=== PATIENT | female | born 1990 | race Caucasian/White ===

== ENCOUNTER 2018-02-07 17:06 | Emergency (ER) | payer OTHER ==
--- NOTE | 2018-02-07 17:22 | PDOC ---
Rapid Medical Evaluation Time Seen by Provider: 02/07/18 17:18 Medical Evaluation: 02/07/18 17:18 Pt. presents to the ED for vaginal bleeding, five weeks . Pt also having cramping and spotting. Bleeding starting today. LMP 12/25/17. Exam: ambulatory. AAox3. lower abdominal discomfort. abdomen soft, non-distended , no guarding Orders: Labs, urine US Pt to proceed to ED for further evaluation. Discharge Disposition - Diagnosis Vaginal bleeding - Referrals - Patient Instructions - Post Discharge Activity
[2018-02-07 17:23] VITALS: BP 138/75; PULSE 83; TEMP 998.6; BMI 31.2
--- NOTE | 2018-02-07 17:41 | PDOC ---
History of Present Illness - General Chief Complaint: Vaginal Bleeding Stated Complaint: VAGINAL BLEEDING/5 WKS Time Seen by Provider: 02/07/18 17:18 - History of Present Illness Initial Comments: 27yo with vaginal bleeding and abdominal pain. Patient presented to [facility] 2 days ago for similar complaint, but reports that symptoms are worse today. Transvaginal ultrasound did not confirm IUP at [facility]. Patient visited a clinic in the [place] yesterday for similar complaint which measured B-hCG at 6218. Patient used about 5 pads today and noticed some blood clots. She also had some abdominal pain which she described as cramping. She is not established with an label paster physician at this time. Patient is also concerned about an xray that was taken earlier this month at [facility]. Denies fever, chills, SOB, or chest pain. Significant other and significant other's brother at the bedside. 02/07/18 19:18 Past History - Past Medical History Allergies/Adverse Reactions: Allergies Allergy/AdvReac Type Severity Reaction Status Date / Time No Known Allergies Allergy Verified 02/07/18 17:18 COPD: No - Immunization History Immunization Up to Date: Yes - Suicide/Smoking/Psychosocial Hx Smoking History: Former smoker Have you smoked in the past 12 months: Yes If you are a former smoker, when did you quit?: 12/25/17 Information on smoking cessation initiated: No Hx Alcohol Use: No Drug/Substance Use Hx: No Review of Systems - Review of Systems Comments:: Constitutional: no fever, no chills Cardiovascular: no chest pain, no palpitations Respiratory: no cough, no shortness of breath Gastrointestinal: no abdominal pain, no nausea, no vomiting Genitourinary: no dysuria, no frequency Musculoskeletal: no myalgia, no arthralgia Neurologic: no headache, no dizziness *Physical Exam - Vital Signs Last Vital Signs Temp Pulse Resp BP Pulse Ox 998.6 F H 83 18 138/75 100 02/07/18 17:18 02/07/18 17:18 02/07/18 17:18 02/07/18 17:18 02/07/18 17:18 - Physical Exam Comments: General: Awake, alert, and fully oriented, in no acute distress Head: No signs of trauma Eyes: EOMI, sclera anicteric ENT: moist mucus membranes, Neck: Normal ROM, supple Lungs: Lungs clear, Normal breath sounds Cardio: Regular rhythm, S1 and S2 present, no murmurs, rubs, or gallops Abdomen: +tender to palpation in suprapubic area, Soft, normal bowel sounds. No guarding, no rebound, no masses Extremities: Normal range of motion, No clubbing or cyanosis. No cords or tenderness SKIN: Warm, Dry, normal turgor, no rashes or lesions noted Neurologic: Cranial nerves II through XII grossly intact. Normal speech Pelvic Exam: No blood visible in the vault, cervical os is closed 02/07/18 20:04 ED Treatment Course - LABORATORY CBC & Chemistry Diagram: 02/07/18 18:05 Medical Decision Making - Medical Decision Making 27yo female with vaginal bleeding and abdominal pain. Labs and TVUS ordered. Pelvic exam: no blood visible in the vault. Cervical os closed. Will trend B-hCG. Possibly too early in to confirm IUP. Patient will likely need outpatient follow-up with an label paster. Patient signed out to Dr. Schilling 02/07/18 20:04 Laboratory Tests 02/07/18 02/07/18 02/07/18 17:50 18:05 18:05 WBC 11.7 H RBC 4.93 Hgb 14.7 Hct 43.6 MCV 88.6 MCH 29.8 MCHC 33.7 RDW 14.5 Plt Count 282 MPV 8.9 Absolute Neuts (auto) 8.8 Neutrophils % 75.1 Lymphocytes % 19.2 Monocytes % 4.9 Eosinophils % 0.6 Basophils % 0.2 Nucleated RBC % 0 Beta HCG, Quant 7512.7 Urine Color Ltyellow Urine Appearance Slcloudy Urine pH 6.0 Ur Specific [place] 1.017 Urine Protein Negative Urine Glucose (UA) Negative Urine Ketones Negative Urine Blood 3+ H Urine Nitrite Negative Urine Bilirubin Negative Urine Urobilinogen Negative Ur Leukocyte Esterase Negative Urine WBC (Auto) 3 Urine RBC (Auto) 1 Ur Epithelial Cells Few Urine Bacteria Rare Urine Mucus Rare Blood Type Antibody Screen 02/07/18 18:05 WBC RBC Hgb Hct MCV MCH MCHC RDW Plt Count MPV Absolute Neuts (auto) Neutrophils % Lymphocytes % Monocytes % Eosinophils % Basophils % Nucleated RBC % Beta HCG, Quant Urine Color Urine Appearance Urine pH Ur Specific [place] Urine Protein Urine Glucose (UA) Urine Ketones Urine Blood Urine Nitrite Urine Bilirubin Urine Urobilinogen Ur Leukocyte Esterase Urine WBC (Auto) Urine RBC (Auto) Ur Epithelial Cells Urine Bacteria Urine Mucus Blood Type O POSITIVE Antibody Screen Negative *DC/Admit/Observation/Transfer Diagnosis at time of Disposition: Vaginal bleeding - Discharge Dispostion Disposition: HOME Condition at time of disposition: Stable - Referrals - Patient Instructions Printed Discharge Instructions: DI for Vaginal Bleeding During Additional Instructions: Please return to the emergency department with any new or worsening symptoms or concerns. Please follow up with your primary care rent and housing investigator physician within 72 hours. Please follow up in emergency department in 2 days for repeat BHCG. - Post Discharge Activity
[2018-02-07 18:23] LABS: BASO % 0.2 % (0-2.0); EOS % 0.6 % (0-4.5); HEMATOCRIT 43.6 % (32.4-45.2); HEMOGLOBIN 14.7 GM/dL (10.7-15.3); LYMPH % 19.2 % (8-40); MCH 29.8 pg (25.7-33.7); MCHC 33.7 g/dl (32.0-36.0); MEAN CELL VOLUME 88.6 fl (80-96); MEAN PLT VOLUME 8.9 fl (7.5-11.1); MONO % 4.9 % (3.8-10.2); NEUT % 75.1 % (42.8-82.8); PLATELET COUNT 282 K/MM3 (134-434); RBC 4.93 M/mm3 (3.60-5.2); RDW 14.5 % (11.6-15.6); WHITE BLOOD COUNT 11.7 K/mm3 (4.0-10.0)
[2018-02-07 18:45] LABS: URINE APPEARANCE SLCLOUDY; URINE BILIRUBIN NEGATIVE (<2.0 mg/dL); URINE COLOR LTYELLOW; URINE GLUCOSE (UA) NEGATIVE (NEGATIVE); URINE KETONE NEGATIVE (NEGATIVE); URINE LEUK ESTERASE NEGATIVE (NEGATIVE); URINE NITRITE NEGATIVE (NEGATIVE); URINE PROTEIN NEGATIVE (NEGATIVE); URINE UROBILINOGEN NEGATIVE mg/dL (0.2-1.0)
[2018-02-07 18:57] LABS: EPI CELLS FEW /HPF (FEW); URINE BACTERIA RARE /hpf (NONE SEEN); URINE MUCUS RARE
--- NOTE | 2018-02-07 19:20 | PDOC ---
Attending Attestation - Resident Resident Name: Erika Chapa - ED Attending Attestation I have performed the following: I have examined & evaluated the patient, The case was reviewed & discussed with the resident, I agree w/resident's findings & plan, Exceptions are as noted - Medical Decision Making 02/07/18 19:18 I, Dr. Marie Cochran, DO, attest that this document has been prepared under my direction and personally reviewed by me in its entirety. I further attest, that it accurately reflects all work, treatment, procedures and medical decision -making performed by me. 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 The patient states that she visited [facility] on Monday02/05/18 and was diagnosed with a possible ectopic . Patient notes bleeding when she wipes. She reports going through multiple pads daily and clots were noted. Patient also endorses dysuria. The patient denies any fever, chills, nausea, vomiting, or diarrhea. Denies any chest pain or shortness of breath. - Physicial Exam PE: 02/07/18 21:12 GENERAL: Awake, alert, and fully oriented, in no acute distress HEAD: No signs of trauma EYES: PERRLA, EOMI, sclera anicteric, conjunctiva clear ENT: Auricles normal inspection, hearing grossly normal, nares patent, oropharynx clear without exudates. Moist mucosa NECK: Normal ROM, supple, no lymphadenopathy, JVD, or masses LUNGS: Breath sounds equal, clear to auscultation bilaterally. No wheezes, and no crackles HEART: Regular rate and rhythm, normal S1 and S2, no murmurs, rubs or gallops ABDOMEN: Soft, nontender, normoactive bowel sounds. No guarding, no rebound. No masses EXTREMITIES: Normal range of motion, no edema. No clubbing or cyanosis. No cords, erythema, or tenderness NEUROLOGICAL: Cranial nerves II through XII grossly intact. Normal speech, normal gait SKIN: Warm, Dry, normal turgor, no rashes or lesions noted <Rolanda Hodges - Last Filed: 02/07/18 21:17> Attestations - Attestations 02/07/18 21:15 Documentation prepared by Rolanda Hodges, acting as medical office assistant instructor for Marie Cochran DO. <Rolanda Hodges - Last Filed: 02/07/18 21:17>
--- NOTE | 2018-02-07 20:24 | PDOC ---
*Physical Exam - Vital Signs Last Vital Signs Temp Pulse Resp BP Pulse Ox 998.6 F H 83 18 138/75 100 02/07/18 17:18 02/07/18 17:18 02/07/18 17:18 02/07/18 17:18 02/07/18 17:18 - Physical Exam Comments: 02/07/18 20:23 GENERAL: Awake, alert, and fully oriented, in no acute distress HEAD: No signs of trauma, normocephalic, atraumatic EYES: PERRLA, EOMI, sclera anicteric, conjunctiva clear ENT: Hearing grossly normal, nares patent, oropharynx clear without exudates. Moist mucosa NECK: Normal ROM, supple, no lymphadenopathy, JVD, or masses LUNGS: No distress, speaks full sentences, clear to auscultation bilaterally HEART: Regular rate and rhythm, normal S1 and S2, no murmurs, rubs or gallops, peripheral pulses normal and equal bilaterally. ABDOMEN: Soft, nontender, normoactive bowel sounds. No guarding, no rebound. No masses EXTREMITIES : Normal inspection, Normal range of motion, no edema. No clubbing or cyanosis. SKIN: Warm, Dry, normal turgor, no rashes or lesions noted ED Treatment Course - LABORATORY CBC & Chemistry Diagram: 02/07/18 18:05 - ADDITIONAL ORDERS Additional order review: Laboratory Results 02/07/18 02/07/18 02/07/18 18:05 18:05 17:50 Beta HCG, Quant 7512.7 Urine Color Ltyellow Urine Appearance Slcloudy Urine pH 6.0 Ur Specific [place] 1.017 Urine Protein Negative Urine Glucose (UA) Negative Urine Ketones Negative Urine Blood 3+ H Urine Nitrite Negative Urine Bilirubin Negative Urine Urobilinogen Negative Ur Leukocyte Esterase Negative Urine WBC (Auto) 3 Urine RBC (Auto) 1 Ur Epithelial Cells Few Urine Bacteria Rare Urine Mucus Rare Blood Type O POSITIVE Antibody Screen Negative 02/07/18 18:05 RBC 4.93 MCV 88.6 MCHC 33.7 RDW 14.5 MPV 8.9 Neutrophils % 75.1 Lymphocytes % 19.2 Monocytes % 4.9 Eosinophils % 0.6 Basophils % 0.2 Medical Decision Making - Medical Decision Making 02/07/18 20:24 27 yo who p/w vaginal bleeding and abdominal pain. Received sign out from Dr. Chapa. Patient seen at [facility] x 2 days ago with asbent IUP visualized on transvaginal ultrasound. No other complaints. VSS, AF. ED course notable HCG 7512, WBC 11.7, UA 1 + Blood and 3 RBC, CMP Unremarkable. TVUS pending. Ed Course: 02/07/18 20:28 TVUS: IUP 5w,5d.+ gestational sac with yolk sac present. No pole seen. Patient advised to f/u with GI for serial transvaginal U/S and HCG. Patient stable for d/c with return precautions. *DC/Admit/Observation/Transfer Diagnosis at time of Disposition: Vaginal bleeding - Discharge Dispostion Disposition: HOME Condition at time of disposition: Stable Decision to Admit order: No - Referrals - Patient Instructions Printed Discharge Instructions: DI for Vaginal Bleeding During Additional Instructions: Please return to the emergency department with any new or worsening symptoms or concerns. Please follow up with your primary care lead android developer physician within 72 hours. - Post Discharge Activity - Attestations Physician Attestion: 02/07/18 20:43 I attest to the information provided in this note.
== END 2018-02-07 21:30 | disposition home or self-care (01) ==
LOC: JER 17:06
DX: O26.891 Other specified pregnancy related conditions, first trimester (principal); N93.9 Abnormal uterine and vaginal bleeding, unspecified
CPT/HCPCS: 36415; 76817-TC; 81003; 81015; 84702; 85025; 86850; 86900; 86901; 87086; 99282-25

== ENCOUNTER 2018-02-09 10:58 | Emergency (ER) | payer OTHER ==
[2018-02-09 11:27] VITALS: BP 135/68; PULSE 84; TEMP 98.3; BMI 33.3
[2018-02-09] MEDS ORDERED: ACETAMINOPHEN 500 MG TABLET (FP) PO ONE (11:44)
--- NOTE | 2018-02-09 11:44 | PDOC ---
History of Present Illness - General Chief Complaint: Revisit, Lab Variance Stated Complaint: REVISIT, FOLLOW UP Time Seen by Provider: 02/09/18 11:32 History Source: Patient Exam Limitations: Clinical Condition - History of Present Illness Initial Comments: 02/09/18 11:41 Patient with no significant past medical history presenting for follow-up for repeat beta hCG status was presented to the ED 2 days ago with vaginal bleeding which has resolved. Beta hCG done 2 days ago was 7000+. Vaginal auto sounds shows IUP of 5.5 weeks . Patient reported no more vaginal bleeding but reported mild abdominal pains she describes as cramping pain. Denies any other symptoms Past History - Past Medical History Allergies/Adverse Reactions: Allergies Allergy/AdvReac Type Severity Reaction Status Date / Time No Known Allergies Allergy Verified 02/07/18 17:18 Home Medications: Ambulatory Orders NK [No Known Home Medication] 02/09/18 COPD: No - Immunization History Immunization Up to Date: Yes - Suicide/Smoking/Psychosocial Hx Smoking History: Former smoker Have you smoked in the past 12 months: Yes Number of Cigarettes Smoked Daily: 10 If you are a former smoker, when did you quit?: 12/25/17 Information on smoking cessation initiated: No Hx Alcohol Use: Yes (socially) Drug/Substance Use Hx: No Review of Systems - Review of Systems Able to Perform ROS?: Yes Is the patient limited Azeri proficient: No Constitutional: No: Chills, Diaphoresis, Fever, Loss of Appetite, Malaise, Night Sweats, Weakness, Weight Stable, Unintentional Wgt. Loss, Unexplained wgt Loss, Other HEENTM: No: Eye Pain, Blurred Vision, Tearing, Recent change in vision, Double Vision, Cataracts, Ear Pain, Ocular Prothesis, Ear Discharge, Nose Pain, Nose Congestion, Tinnitus, Nose Bleeding, Hearing Loss, Throat Pain, Throat Swelling , Mouth Pain, Dental Problems, Difficulty Swallowing, Mouth Swelling, Other Respiratory: No: Cough, Orthopnea, Shortness of Breath, SOB with Exertion, SOB at Rest, Stridor, Wheezing, Productive cough, Hemoptysis, Other Cardiac (ROS): No: Chest Pain, Edema, Irregular Heart Rate, Lightheadedness, Palpitations, Syncope, Chest Tightness, Other ABD/GI: Yes: See HPI : Yes: Symptoms Reported. No: Other (vaginal bleeding) All Other Systems: Reviewed and Negative *Physical Exam - Vital Signs Last Vital Signs Temp Pulse Resp BP Pulse Ox 98.3 F 84 18 135/68 100 02/09/18 11:19 02/09/18 11:19 02/09/18 11:19 02/09/18 11:19 02/09/18 11:19 - Physical Exam Comments: 02/09/18 11:43 GENERAL: Well developed, well nourished. Awake and alert. No acute distress. HEENT: Normocephalic, atraumatic. PERRLA, EOMI. No conjunctival pallor. Sclera are non- icteric. Moist mucous membranes. Oropharynx is clear. NECK: Supple. Full ROM. No JVD. Carotid pulses 2+ and symmetric, without bruits. No thyromegaly. No lymphadenopathy. CARDIOVASCULAR: Regular rate and rhythm. No murmurs, rubs, or gallops. Distal pulses are 2+ and symmetric. PULMONARY: No evidence of respiratory distress. Lungs clear to auscultation bilaterally. No wheezing, rales or rhonchi. ABDOMINAL: Soft. Non-tender. Non-distended. No rebound or guarding. No organomegaly. Normoactive bowel sounds. MUSCULOSKELETAL : mild suprapubic discomfort on exam Normal range of motion at all joints. No bony deformities or tenderness. No CVA tenderness. EXTREMITIES: No cyanosis. No clubbing. No edema. No calf tenderness. SKIN: Warm and dry. Normal capillary refill. No rashes. No jaundice. NEUROLOGICAL: Alert, awake, appropriate. Cranial nerves 2-12 intact. No deficits to light touch and temperature in face, upper extremities and lower extremities. No motor deficits in the in face, upper extremities and lower extremities. Normoreflexic in the upper and lower extremities. Normal speech. Toes are down- going bilaterally. Gait is normal without ataxia. PSYCHIATRIC: Cooperative. Good eye contact. Appropriate mood and affect. General Appearance: Yes: Nourished, Appropriately Dressed. No: Apparent Distress Medical Decision Making - Medical Decision Making 02/09/18 11:58 Patient with no significant past medical history presenting for follow-up for beta-hCG status post vaginal bleeding 2 days ago with beta-hCG of 7000+. Official vaginal ultrasound done 2 days ago shows positive IUP with gestational sac and no pole. Vaginal bleeding has resolved with no more bleeding today. Bedside sonogram shows positive gestational sac and yolk sac with no . Beta hCG ordered and patient will be discharged home if appropriate rise with MATERIALS PLANNER/PRODUCTION PLANNER follow-up in a week for repeat beta and sono with bleeding precautions. 02/09/18 12:51 Repeat beta hCG is 12,000+. Patient be discharged home with follow-up with OB/ SIGNAL TIMER in a week for repeat sonogram and beta hCG with bleeding precautions *DC/Admit/Observation/Transfer Diagnosis at time of Disposition: Threatened - Discharge Dispostion Disposition: HOME Condition at time of disposition: Stable Decision to Admit order: No - Referrals Referrals: Angi Ribera MD [Staff Physician] - - Patient Instructions Printed Discharge Instructions: Threatened , DI for Threatened Additional Instructions: Your blood work today Rise appropriately . Follow-up with her MATERIALS PLANNER/PRODUCTION PLANNER in a week for repeat blood work on sonogram. Come back to the emergency room if vaginal bleeding again and worsening abdominal pains . take Tylenol as needed for pain Print Language: PUERTO RICAN - Post Discharge Activity
[2018-02-09] MEDS ORDERED: ACETAMINOPHEN 500 MG TABLET (FP) ONE (11:54)
== END 2018-02-09 12:55 | disposition home or self-care (01) ==
LOC: JERFT 10:58
DX: O26.891 Other specified pregnancy related conditions, first trimester (principal); Z3A.01 Less than 8 weeks gestation of pregnancy; O20.0 Threatened abortion
CPT/HCPCS: 36415; 84702; 99281-25

== ENCOUNTER 2018-03-11 14:49 | Emergency (ER) | payer OTHER ==
[2018-03-11 14:59] VITALS: BP 129/77; PULSE 83; TEMP 98.5; BMI 33.3
[2018-03-11] MEDS ORDERED: ACETAMINOPHEN 500 MG TABLET (FP) PO ONE (15:40)
--- NOTE | 2018-03-11 15:54 | PDOC ---
History of Present Illness - General Chief Complaint: Urinary Problem Stated Complaint: UTI ( 10 weeks ) History Source: Patient Exam Limitations: No Limitations - History of Present Illness Travel History: No Initial Comments: 03/11/18 15:43 27 y/o female 10 weeks presents to the ED for urinary complaints x 4 days now with lower abdominal pressure x 3 days radiating to rt flank area since yesterday. Pt states had no ultrasound for the an is on prenatals. Patient denies vaginal discharge, bleeding , or back pain. The patient denies recent travel, illness, or fall. Timing/Duration: reports: constant, getting worse Quality: reports: mild, cramping Abdominal Pain Onset Location: reports: suprapubic Pain Radiation: reports: flank (rt) Activities at Onset: reports: none Aggravating Factors: improves with: None Alleviating Factors: improves with: None Past History - Past Medical History Allergies/Adverse Reactions: Allergies Allergy/AdvReac Type Severity Reaction Status Date / Time No Known Allergies Allergy Verified 03/11/18 14:59 Home Medications: Ambulatory Orders Cephalexin [Keflex] 500 mg PO BID #14 capsule 03/11/18 Vit 108/Iron/Folic AC [ One Tablet] 1 each PO DAILY 03/11/18 COPD: No - Immunization History Immunization Up to Date: Yes - Suicide/Smoking/Psychosocial Hx Smoking History: Never smoked Have you smoked in the past 12 months: No Number of Cigarettes Smoked Daily: 10 If you are a former smoker, when did you quit?: 12/25/17 Information on smoking cessation initiated: No Hx Alcohol Use: No Drug/Substance Use Hx: No Patient Lives Alone: No Lives with/in: parents Review of Systems - Review of Systems Constitutional: No: Symptoms Reported HEENTM: No: Symptoms Reported Respiratory: No: Symptoms reported Cardiac (ROS): No: Symptoms Reported ABD/GI: No: Symptoms Reported : No: Symptoms Reported Musculoskeletal: No: Symptoms Reported Integumentary: No: Symptoms Reported Neurological: No: Symptoms reported *Physical Exam - Vital Signs Last Vital Signs Temp Pulse Resp BP Pulse Ox 98.5 F 83 16 129/77 100 03/11/18 14:54 03/11/18 14:54 03/11/18 14:54 03/11/18 14:54 03/11/18 14:54 - Physical Exam General Appearance: Yes: Nourished, Appropriately Dressed. No: Apparent Distress Neck: positive: Supple Respiratory/Chest: positive: Lungs Clear, Normal Breath Sounds. negative: Respiratory Distress, Accessory Muscle Use Cardiovascular: positive: Regular Rhythm, Regular Rate. negative: Murmur Gastrointestinal/Abdominal: positive: Soft. negative: Tenderness Musculoskeletal: negative: CVA Tenderness (R) Extremity: positive: Normal Capillary Refill. negative: Pedal Edema Integumentary: positive: Normal Color, Warm, Moist Neurologic: positive: Motor Strength 5/5 (ambulatory ) ED Treatment Course - LABORATORY CBC & Chemistry Diagram: 03/11/18 15:50 03/11/18 15:50 - RADIOLOGY Radiology Studies Ordered: Category Date Time Status <14WKS US [US] Stat Ultrasound 03/11/18 15:38 Ordered Medical Decision Making - Medical Decision Making 03/11/18 16:03 Pt with urinary complaints x 4 days with suprapubic pressure x 3 days. pt on exam with no mild cva tendeness. Pt concerning for uti, abd pain in , and miscarriage/ectopic, pt ordered for labs,urine, tylenol, and u/s. 03/11/18 16:08 Laboratory Tests 03/11/18 15:50 WBC 10.2 H Hgb 13.6 Hct 39.2 Absolute Neuts (auto) 7.2 03/11/18 17:59 Laboratory Tests 03/11/18 03/11/18 03/11/18 15:50 15:50 15:59 WBC 10.2 H Hgb 13.6 Hct 39.2 Neutrophils % 70.4 Sodium 142 Potassium 3.8 Chloride 108 H Carbon Dioxide 24 Anion Gap 10 BUN 10 Creatinine 0.5 L Random Glucose 97 Calcium 9.0 Total Bilirubin 0.2 AST 17 ALT 45 Alkaline Phosphatase 73 Total Protein 7.0 Albumin 3.6 Urine Protein Negative Urine Glucose (UA) Negative Urine Ketones Negative Urine Blood Negative Urine Nitrite Negative Ur Leukocyte Esterase 2+ H Urine WBC (Auto) 13 Urine RBC (Auto) 1 Patient's ultrasound shows a single intrauterine gestation measuring 10 weeks with a heartbeat of 152 bpm. Patient will be discharged home with Keflex. Patient states of an appointment in [address] Justin Whitehead 03/11/18 18:15 *DC/Admit/Observation/Transfer Diagnosis at time of Disposition: UTI in - Discharge Dispostion Disposition: HOME Condition at time of disposition: Good - Prescriptions Prescriptions: Cephalexin [Keflex] 500 mg PO BID #14 capsule - Referrals - Patient Instructions Printed Discharge Instructions: DI for Urinary Tract Infection (UTI) Additional Instructions: Please drink plenty of fluids and clean from front to back. Please also take antibiotics until completed and follow-up with SAP SECURITY ARCHITECT as scheduled next month. - Post Discharge Activity
[2018-03-11 15:58] LABS: BASO % 0.7 % (0-2.0); EOS % 0.7 % (0-4.5); HEMATOCRIT 39.2 % (32.4-45.2); HEMOGLOBIN 13.6 GM/dL (10.7-15.3); LYMPH % 21.7 % (8-40); MCH 30.3 pg (25.7-33.7); MCHC 34.6 g/dl (32.0-36.0); MEAN CELL VOLUME 87.4 fl (80-96); MEAN PLT VOLUME 8.4 fl (7.5-11.1); MONO % 6.5 % (3.8-10.2); NEUT % 70.4 % (42.8-82.8); PLATELET COUNT 228 K/MM3 (134-434); RBC 4.48 M/mm3 (3.60-5.2); RDW 13.7 % (11.6-15.6); WHITE BLOOD COUNT 10.2 K/mm3 (4.0-10.0)
[2018-03-11 16:06] LABS: URINE APPEARANCE CLOUDY; URINE BILIRUBIN NEGATIVE (<2.0 mg/dL); URINE COLOR YELLOW; URINE GLUCOSE (UA) NEGATIVE (NEGATIVE); URINE KETONE NEGATIVE (NEGATIVE); URINE NITRITE NEGATIVE (NEGATIVE); URINE PROTEIN NEGATIVE (NEGATIVE); URINE UROBILINOGEN NEGATIVE mg/dL (0.2-1.0)
[2018-03-11] MEDS ORDERED: ACETAMINOPHEN 325 MG TABLET (FP) ONE (16:06)
[2018-03-11 16:11] LABS: URINE LEUK ESTERASE 2+ (NEGATIVE)
[2018-03-11 16:13] LABS: EPI CELLS MANY /HPF (FEW); URINE MUCUS RARE
[2018-03-11 16:22] LABS: ALBUMIN 3.6 g/dl (3.4-5.0); ALK PHOS 73 U/L (45-117); ANION GAP 10 MMOL/L (8-16); BILIRUBIN,TOTAL 0.2 mg/dL (0.2-1.0); BLOOD UREA NITROGEN 10 mg/dL (7-18); CHLORIDE 108 mmol/L (98-107); CO2 24 mmol/L (21-32); CREATININE 0.5 mg/dL (0.55-1.02); GLUCOSE,RANDOM 97 mg/dL (74-106); POTASSIUM 3.8 mmol/L (3.5-5.1); SGOT/AST 17 U/L (15-37); SGPT/ALT 45 U/L (12-78); SODIUM 142 mmol/L (136-145)
== END 2018-03-11 18:15 | disposition home or self-care (01) ==
LOC: JER 14:49
DX: O26.891 Other specified pregnancy related conditions, first trimester (principal); O23.41 Unspecified infection of urinary tract in pregnancy, first trimester; Z3A.10 10 weeks gestation of pregnancy
CPT/HCPCS: 36415; 76801-TC; 80053; 81003; 81015; 85025; 87086; 99281-25

== ENCOUNTER 2018-04-22 11:44 | Emergency (ER) | payer OTHER ==
[2018-04-22 11:51] VITALS: BP 131/67; PULSE 115; TEMP 99.1; BMI 33.3
--- NOTE | 2018-04-22 11:55 | PDOC ---
History of Present Illness - General Chief Complaint: Sore Throat Stated Complaint: SORE THROAT/FEVER Time Seen by Provider: 04/22/18 11:55 Past History - Past Medical History Allergies/Adverse Reactions: Allergies Allergy/AdvReac Type Severity Reaction Status Date / Time No Known Allergies Allergy Verified 04/22/18 11:51 Home Medications: Ambulatory Orders Cephalexin [Keflex] 500 mg PO BID #14 capsule 03/11/18 Vit 108/Iron/Folic AC [ One Tablet] 1 each PO DAILY 03/11/18 COPD: No - Immunization History Immunization Up to Date: Yes - Suicide/Smoking/Psychosocial Hx Smoking History: Never smoked Have you smoked in the past 12 months: No Number of Cigarettes Smoked Daily: 10 If you are a former smoker, when did you quit?: 12/25/17 Information on smoking cessation initiated: No Hx Alcohol Use: No Drug/Substance Use Hx: No Substance Use Type: None *Physical Exam - Vital Signs Last Vital Signs Temp Pulse Resp BP Pulse Ox 99.1 F 115 H 20 131/67 99 04/22/18 11:49 04/22/18 11:49 04/22/18 11:49 04/22/18 11:49 04/22/18 11:49
--- NOTE | 2018-04-22 12:18 | PDOC ---
History of Present Illness - General Chief Complaint: Sore Throat Stated Complaint: SORE THROAT/FEVER Time Seen by Provider: 04/22/18 11:55 History Source: Patient Exam Limitations: No Limitations - History of Present Illness Initial Comments: CHIEF COMPLAINT: 27 y/o afebrile female, approximately 14 weeks , c/o sore throat and fever x 2 days. HISTORY OF PRESENT ILLNESS: The patient states it's hard to swallow. She has been taking tylenol for her symptoms. She denies cough, inability to handle secretions. Vital signs on arrival are notable for pulse of 115. REVIEW OF SYSTEMS: GENERAL/CONSTITUTIONAL: +subjective fever. HEAD, EYES, EARS, NOSE AND THROAT: No ear pain or discharge. +sore throat. CARDIOVASCULAR: No chest pain or shortness of breath. RESPIRATORY: No cough, wheezing, or hemoptysis. SKIN: No rash or easy bruising. NEUROLOGIC: No headache, vertigo, loss of consciousness, or loss of sensation. PHYSICAL EXAM: GENERAL: The patient is awake, alert, and fully oriented, in no acute distress. HEAD: Normal with no signs of trauma. NECK: Tender anterior cervical lymphadenopathy. ENT: Pupils equal, round and reactive to light, extraocular movements intact, sclera anicteric, conjunctiva clear. 1+ erythematous tonsils with exudate noted on left tonsil. Uvula midline. No trismus. No soft/hard palate deformities. LUNGS: Clear to auscultation bilaterally. Normal excursion. No respiratory distress or use of accessory muscles. CV: RRR, S1/S2, no MRG. Cap refill < 2 sec. ABDOMEN: Soft, non-distended, non-tender even to deep palpation, no hepatomegaly or splenomegaly, no masses. NEUROLOGICAL: Normal speech, normal gait. CN II-XII grossly intact. SKIN: Warm, dry, normal turgor, no rashes or lesions noted. Past History - Past Medical History Allergies/Adverse Reactions: Allergies Allergy/AdvReac Type Severity Reaction Status Date / Time No Known Allergies Allergy Verified 04/22/18 11:51 Home Medications: Ambulatory Orders Cephalexin [Keflex] 500 mg PO BID #14 capsule 03/11/18 Vit 108/Iron/Folic AC [ One Tablet] 1 each PO DAILY 03/11/18 Penicillin V Potassium [Pen Vee K -] 500 mg PO BID #20 tablet 04/22/18 COPD: No - Immunization History Immunization Up to Date: Yes - Suicide/Smoking/Psychosocial Hx Smoking History: Never smoked Have you smoked in the past 12 months: No Number of Cigarettes Smoked Daily: 10 If you are a former smoker, when did you quit?: 12/25/17 Information on smoking cessation initiated: No Hx Alcohol Use: No Drug/Substance Use Hx: No Substance Use Type: None *Physical Exam - Vital Signs Last Vital Signs Temp Pulse Resp BP Pulse Ox 99.1 F 115 H 20 131/67 99 04/22/18 11:49 04/22/18 11:49 04/22/18 11:49 04/22/18 11:49 04/22/18 11:49 Medical Decision Making - Medical Decision Making A/P: 27 y/o female with strep throat based on centor score. Will send rx for PCN and suggested tylenol every 4 hours. Patient instructed to eat soft/cold foods, drink plenty of fluids and keep follow up appointment with OB scheduled for tomorrow. The patient verbalizes understanding of all instructions, has no further questions and is awaiting discharge. *DC/Admit/Observation/Transfer Diagnosis at time of Disposition: Strep pharyngitis - Discharge Dispostion Disposition: HOME Condition at time of disposition: Good - Referrals Referrals: Sharmin Lindsay [Primary Care Provider] - - Patient Instructions Printed Discharge Instructions: DI for Strep Throat Additional Instructions: Discharge Instructions: -You have strep throat, which is an infection in your throat -A prescription for antibiotics has been sent to your pharmacy; please take for entire 10 days -Take 650mg of over the counter Tylenol every 4 hours for fever -Eat soft and cold foods to help with throat pain -Get a new toothbrush after 3 days of the medicine -Gargle with warm salt water 3 times per day -Keep your appointment with your doctor scheduled for tomorrow Instrucciones de descarga: -Usted tiene vasyl faringitis estreptoccica, que es vasyl infeccin en andrade garganta. -Vasyl receta de antibiticos currie sido enviada a andrade farmacia; por favor tome jenn 10 genao enteros -[place] 650 mg de Tylenol sin receta cada 4 horas para la fiebre -Come alimentos suaves y fros para ayudar con el dolor de garganta. - Obtener un cepillo de dientes nuevo despus de 3 miller de la medicina. -Gargar con agua tibia con mary 3 veces al da - Mantenga andrade david con andrade mdico programada para maana. Print Language: PERSIAN - Post Discharge Activity
== END 2018-04-22 12:27 | disposition home or self-care (01) ==
LOC: JER 11:44 → JERFT 11:44
DX: O99.89 Other specified diseases and conditions complicating pregnancy, childbirth and the puerperium (principal); J02.0 Streptococcal pharyngitis; B95.5 Unspecified streptococcus as the cause of diseases classified elsewhere; Z3A.14 14 weeks gestation of pregnancy
CPT/HCPCS: 99281-25

== ENCOUNTER 2018-05-29 15:32 | Emergency (ER) | payer OTHER ==
--- NOTE | 2018-05-29 15:53 | PDOC ---
Rapid Medical Evaluation Time Seen by Provider: 05/29/18 15:50 Medical Evaluation: Allergies Allergy/AdvReac Type Severity Reaction Status Date / Time No Known Allergies Allergy Verified 04/22/18 11:51 I have performed a brief in-person evaluation of this patient. The patient presents with a chief complaint of: 23 weeks with lower abdominal pain and vaginal spotting since yesterday. . LMP was 12/16/17. Pertinent physical exam findings: none I have ordered the following: nothing. Patient is cleared to go to L&D. The patient will proceed to the ED for further evaluation. Discharge Disposition - Diagnosis Vaginal bleeding, Abdominal pain affecting - Referrals Referrals: Sharmin Lindsay [Primary Care Provider] - - Patient Instructions - Post Discharge Activity
[2018-05-29 15:54] VITALS: BMI 32.9
[2018-05-29 17:47] VITALS: BP 129/68; PULSE 87; TEMP 98.4
== END 2018-05-29 18:20 | disposition home or self-care (01) ==
LOC: JER 15:32
DX: O26.892 Other specified pregnancy related conditions, second trimester (principal); O46.92 Antepartum hemorrhage, unspecified, second trimester; Z3A.23 23 weeks gestation of pregnancy
CPT/HCPCS: 76815-TC; 76817-TC; 99284-25

== ENCOUNTER 2019-04-07 13:20 | Emergency (ER) | payer OTHER ==
[2019-04-07 13:57] VITALS: BP 122/68; PULSE 69; TEMP 98.1; BMI 32.9
--- NOTE | 2019-04-07 14:34 | PDOC ---
History of Present Illness - General Chief Complaint: Chest Pain Stated Complaint: CHEST PAIN Time Seen by Provider: 04/07/19 14:19 History Source: Patient - History of Present Illness Presenting Symptoms: Other Timing/Duration: reports: intermittent Past History - Past Medical History Allergies/Adverse Reactions: Allergies Allergy/AdvReac Type Severity Reaction Status Date / Time latex Allergy Mild Itching Verified 05/29/18 15:54 Home Medications: Ambulatory Orders Mv-Mn/Iron/FA/Herbal/Digestive [ One Tablet] 1 each PO DAILY 03/11/18 Sertraline HCl [Zoloft] 50 mg PO DAILY 07/07/18 COPD: No - Reproductive History Cervical CA: No Dysfunctional Uterine Bleeding: No Ectopic : No Endometrial CA: No Polycystic Ovaries: No Therapeutic (s) & number: No Tubal Ligation: No - Immunization History Immunization Up to Date: Yes - Suicide/Smoking/Psychosocial Hx Smoking History: Current some day smoker Have you smoked in the past 12 months: No Number of Cigarettes Smoked Daily: 2 If you are a former smoker, when did you quit?: 12/25/17 Information on smoking cessation initiated: Yes Hx Alcohol Use: No Drug/Substance Use Hx: No Substance Use Type: None Review of Systems - Review of Systems Constitutional: No: Chills, Fever Respiratory: No: Shortness of Breath Cardiac (ROS): Yes: Chest Pain, Lightheadedness. No: Palpitations, Syncope ABD/GI: No: Nausea, Vomiting *Physical Exam - Vital Signs Last Vital Signs Temp Pulse Resp BP Pulse Ox 98.1 F 69 20 122/68 99 04/07/19 13:55 04/07/19 13:55 04/07/19 13:55 04/07/19 13:55 04/07/19 13:55 - Physical Exam General Appearance: Yes: Appropriately Dressed. No: Apparent Distress HEENT: positive: Normal Voice Neck: positive: Supple Respiratory/Chest: positive: Lungs Clear, Normal Breath Sounds. negative: Respiratory Distress Cardiovascular: positive: Regular Rate, S1, S2 Gastrointestinal/Abdominal: positive: Soft. negative: Tender Extremity: negative: Pedal Edema Integumentary: positive: Dry, Warm Neurologic: positive: Fully Oriented, Alert, Normal Mood/Affect ED Treatment Course - LABORATORY CBC & Chemistry Diagram: 04/07/19 14:49 04/07/19 14:49 - ADDITIONAL ORDERS Additional order review: Laboratory Results 04/07/19 04/07/19 04/07/19 14:49 14:49 14:49 Sodium 138 Potassium 3.9 Chloride 107 Carbon Dioxide 21 Anion Gap 10 BUN 11.7 Creatinine 0.7 Est GFR (CKD-EPI)AfAm 138.59 Est GFR (CKD-EPI)NonAf 119.58 Random Glucose 98 Calcium 9.0 Total Bilirubin 0.6 AST 22 ALT 46 Alkaline Phosphatase 99 Creatine Kinase Troponin I Total Protein 7.5 Albumin 4.0 Urine Color Yellow Urine Appearance Cloudy Urine pH 6.5 D Ur Specific [place] 1.014 Urine Protein Negative Urine Glucose (UA) Negative Urine Ketones Negative Urine Blood Negative Urine Nitrite Negative Urine Bilirubin Negative Urine Urobilinogen 1.0 Ur Leukocyte Esterase 1+ H Urine WBC (Auto) 5 Urine RBC (Auto) 2 Urine Casts (Auto) 3 U Epithel Cells (Auto) 16.6 Urine Bacteria (Auto) 398.2 Urine HCG, Qual Negative 04/07/19 14:49 Sodium Potassium Chloride Carbon Dioxide Anion Gap BUN Creatinine Est GFR (CKD-EPI)AfAm Est GFR (CKD-EPI)NonAf Random Glucose Calcium Total Bilirubin AST ALT Alkaline Phosphatase Creatine Kinase 149 Troponin I < 0.02 Total Protein Albumin Urine Color Urine Appearance Urine pH Ur Specific [place] Urine Protein Urine Glucose (UA) Urine Ketones Urine Blood Urine Nitrite Urine Bilirubin Urine Urobilinogen Ur Leukocyte Esterase Urine WBC (Auto) Urine RBC (Auto) Urine Casts (Auto) U Epithel Cells (Auto) Urine Bacteria (Auto) Urine HCG, Qual 04/07/19 14:49 RBC 4.98 MCV 86.0 MCHC 34.4 RDW 14.3 MPV 8.9 Neutrophils % 68.6 Lymphocytes % 24.2 Monocytes % 5.9 Eosinophils % 0.8 Basophils % 0.5 - RADIOLOGY Radiology Studies Ordered: Category Date Time Status CHEST PA & LAT [RAD] Stat Radiology 04/07/19 14:34 Taken Medical Decision Making - Medical Decision Making 04/07/19 14:33 28 yo F, here w/ CP. Patient states for the past week has had left-sided chest pain, unable to describe, 6/10, radiating to her L arm, that she noticed when she is walking that would subside with rest, but that today pain is present at rest. States sometimes she gets dizziness with the pain. No shortness of breath, diaphoresis, nausea or vomiting. Had similar pain 2 months ago while in [place], but never seek medical evaluation. Patient denies any past medical history or illicit drug use. No significant family history. No trauma See exam CP Though no apparent RF for cardiac disease but concerning story, PERCs out, no cough, f/c Stable w/ clear chest/lungs -EKG -CXR -labs -dispo pending 04/07/19 16:00 EKG unremarkable as d/w Dr Alonso. Labs and CXR neg. Pt stable for discharge w/ cards f/u *DC/Admit/Observation/Transfer Diagnosis at time of Disposition: Chest pain Qualifiers: Chest pain type: unspecified Qualified Code(s): R07.9 - Chest pain, unspecified - Discharge Dispostion Disposition: HOME Condition at time of disposition: Good - Referrals Referrals: Triston Abraham MD [Staff Physician] - - Patient Instructions Printed Discharge Instructions: DI for Chest Pain Additional Instructions: The cause of your chest pain is unclear at this time as your EKG, chest x-ray and labs were negative. You will need further evaluation by a senior environmental technician. Please follow-up with Dr. Abraham of cardiology - Post Discharge Activity
[2019-04-07 14:59] LABS: BASO % 0.5 % (0-2.0); EOS % 0.8 % (0-4.5); HEMATOCRIT 42.8 % (32.4-45.2); HEMOGLOBIN 14.7 GM/dL (10.7-15.3); LYMPH % 24.2 % (8-40); MCH 29.5 pg (25.7-33.7); MCHC 34.4 g/dl (32.0-36.0); MEAN PLT VOLUME 8.9 fl (7.5-11.1); MONO % 5.9 % (3.8-10.2); NEUT % 68.6 % (42.8-82.8); PLATELET COUNT 272 K/MM3 (134-434); RBC 4.98 M/mm3 (3.60-5.2); RDW 14.3 % (11.6-15.6); WHITE BLOOD COUNT 9.3 K/mm3 (4.0-10.0)
[2019-04-07 15:23] LABS: BILIRUBIN,TOTAL 0.6 mg/dL (0.2-1); BLOOD UREA NITROGEN 11.7 mg/dL (7-18); CREATININE 0.7 mg/dL (0.55-1.3); POTASSIUM 3.9 mmol/L (3.5-5.1); TOT PROT 7.5 g/dl (6.4-8.2)
[2019-04-07 15:25] LABS: EPI CELLS 16.6 /HPF (0-5/HPF); HYALINE CASTS 3 /lpf (0-8); PH,URINE 6.5 (5.0-8.0); URINE APPEARANCE CLOUDY; URINE BACTERIA 398.2 /hpf (NEGATIVE); URINE BILIRUBIN NEGATIVE (NEGATIVE); URINE COLOR YELLOW; URINE GLUCOSE (UA) NEGATIVE (NEGATIVE); URINE KETONE NEGATIVE (NEGATIVE); URINE LEUK ESTERASE 1+ (NEGATIVE); URINE NITRITE NEGATIVE (NEGATIVE); URINE PROTEIN NEGATIVE (NEGATIVE); URINE RBC 2 /hpf (0-4); URINE WBC 5 /hpf (0-5)
--- NOTE | 2019-04-08 07:06 | EKG ---
Test Reason : Blood Pressure : / mmHG Vent. Rate : 073 BPM Atrial Rate : 073 BPM P-R Int : 160 ms QRS Dur : 102 ms QT Int : 410 ms P-R-T Axes : 006 019 016 degrees QTc Int : 451 ms NORMAL SINUS RHYTHM INCOMPLETE RIGHT BUNDLE BRANCH BLOCK CANNOT RULE OUT ANTERIOR INFARCT , AGE UNDETERMINED ABNORMAL ECG NO PREVIOUS ECGS AVAILABLE Confirmed by SITA MCINTYRE MD ([id number]) on 04/08/2019 7:06:17 AM Referred By: Confirmed By:SITA MCINTYRE MD
== END 2019-04-07 16:37 | disposition home or self-care (01) ==
LOC: JER 13:20
DX: R07.9 Chest pain, unspecified (principal)
CPT/HCPCS: 36415; 71046-TC-FY; 80053; 81003; 82550; 84484; 84703; 85025; 93005; 93010; 99282-25

== ENCOUNTER 2020-11-18 18:52 | Emergency (ER) | payer OTHER ==
[2020-11-18 19:16] VITALS: TEMP 98.4; BMI 31.1
[2020-11-18] MEDS ORDERED: KETOROLAC TROMETHAMINE 30 MG/1 ML VIAL IVPUSH ONE (19:45)
[2020-11-18] MEDS ORDERED: ONDANSETRON 4 MG/2 ML VIAL IVPUSH ONE (19:45)
[2020-11-18 20:22] LABS: BASO % 0.5 % (0-2.0); EOS % 0.7 % (0-4.5); HEMATOCRIT 41.6 % (32.4-45.2); HEMOGLOBIN 14.3 GM/dL (10.7-15.3); MCH 30.3 pg (25.7-33.7); MCHC 34.4 g/dl (32.0-36.0); MEAN CELL VOLUME 88.3 fl (80-96); MONO % 5.5 % (3.8-10.2); NEUT % 69.3 % (42.8-82.8); PLATELET COUNT 262 K/MM3 (134-434); RBC 4.71 M/mm3 (3.60-5.2); RDW 13.9 % (11.6-15.6); WHITE BLOOD COUNT 10.9 K/mm3 (4.0-10.0)
[2020-11-18 20:28] LABS: EPI CELLS 30 /uL (0-25.1); HYALINE CASTS 0 /uL (0-3.1); PH,URINE 6.5 (5.0-8.0); URINE APPEARANCE CLEAR; URINE BACTERIA 816 /uL (0-1359); URINE BILIRUBIN NEGATIVE (NEGATIVE); URINE COLOR YELLOW; URINE GLUCOSE (UA) NEGATIVE (NEGATIVE); URINE KETONE NEGATIVE (NEGATIVE); URINE LEUK ESTERASE 1+ (NEGATIVE); URINE NITRITE NEGATIVE (NEGATIVE); URINE PROTEIN NEGATIVE (NEGATIVE); URINE RBC 15 /uL (0-23.9); URINE UROBILINOGEN 0.2 mg/dL (0.2-1.0); URINE WBC 29 /uL (0-25.8)
[2020-11-18 20:30] LABS: INR 1.04 (0.83-1.09); PROTHROMBIN TIME (PATIENT) 12.6 SEC (9.7-13.0)
[2020-11-18 20:45] LABS: CHLORIDE 107 mmol/L (98-107); SODIUM 140 mmol/L (136-145)
[2020-11-18 20:48] LABS: ALBUMIN 3.8 g/dl (3.4-5.0); ANION GAP 7 MMOL/L (8-16); CO2 26 mmol/L (21-32); GLUCOSE,RANDOM 97 mg/dL (74-106); LIPASE 82 U/L (73-393)
[2020-11-18 20:51] LABS: CREATININE 0.6 mg/dL (0.55-1.3); SGOT/AST 18 U/L (15-37); SGPT/ALT 35 U/L (13-61)
[2020-11-18 20:52] LABS: BILIRUBIN,TOTAL 0.3 mg/dL (0.2-1)
[2020-11-18 20:53] LABS: TOT PROT 7.6 g/dl (6.4-8.2)
[2020-11-18 20:54] LABS: ALK PHOS 95 U/L (45-117)
[2020-11-18 23:02] VITALS: BP 122/78; PULSE 84
== END 2020-11-18 23:04 | disposition home or self-care (01) ==
LOC: JER 18:52
PROC: 3E0333Z Introduction of Anti-inflammatory into Peripheral Vein, Percutaneous Approach (ICD-10-PCS; principal; 2020-11-18)
PROC: 3E033GC Introduction of Other Therapeutic Substance into Peripheral Vein, Percutaneous Approach (ICD-10-PCS; 2020-11-18)
DX: R10.31 Right lower quadrant pain (principal)
CPT/HCPCS: 36415; 74177-TC; 80053; 81003; 83690; 84702; 85025; 85610; 86850; 86900; 86901; 99285-25; Q9967

== ENCOUNTER 2021-02-03 11:45 | Emergency (ER) | payer OTHER ==
[2021-02-03 11:52] VITALS: BMI 31.2
[2021-02-03] MEDS ORDERED: SODIUM CHLORIDE 0.9% 500 ML INFUS.BAG IV ONE (13:01)
[2021-02-03] MEDS ORDERED: KETOROLAC TROMETHAMINE 30 MG/1 ML VIAL IVPUSH ONE (13:01)
[2021-02-03] MEDS ORDERED: METOCLOPRAMIDE HCL INJECTION 10 MG/2 ML VIAL IVPUSH ONE (13:01)
[2021-02-03] MEDS ORDERED: METOCLOPRAMIDE HCL INJECTION 10 MG/2 ML VIAL ONE (13:20)
[2021-02-03] MEDS ORDERED: KETOROLAC TROMETHAMINE 30 MG/1 ML VIAL ONE (13:21)
[2021-02-03 15:07] VITALS: BP 111/63; PULSE 64; TEMP 97.7
== END 2021-02-03 15:08 | disposition home or self-care (01) ==
LOC: JER 11:45
PROC: 3E033GC Introduction of Other Therapeutic Substance into Peripheral Vein, Percutaneous Approach (ICD-10-PCS; principal; 2021-02-03)
PROC: 3E0333Z Introduction of Anti-inflammatory into Peripheral Vein, Percutaneous Approach (ICD-10-PCS; 2021-02-03)
PROC: 3E033GC Introduction of Other Therapeutic Substance into Peripheral Vein, Percutaneous Approach (ICD-10-PCS; 2021-02-03)
DX: R42 Dizziness and giddiness (principal); R51.9 Headache, unspecified
CPT/HCPCS: 99284-25

== ENCOUNTER → 2021-05-26 | Day surgery (SDC) | payer OTHER | END | disposition home or self-care (01) | LOC: JRADUS-SUR 10:20 | PROVIDERS: ATTEND Surgery Surgical Oncology | PROC: 0H9U3ZX Drainage of Left Breast, Percutaneous Approach, Diagnostic (ICD-10-PCS; principal; 2021-05-26) | DX: D24.2 Benign neoplasm of left breast (principal) | CPT/HCPCS: 19083; 87899; A4648 ==

== ENCOUNTER 2021-07-01 23:39 | Emergency (ER) | payer OTHER ==
[2021-07-01 23:43] VITALS: BMI 34.7
[2021-07-02] MEDS ORDERED: MECLIZINE HCL 25 MG TABLET (FP) PO ONE (01:00)
[2021-07-02] MEDS ORDERED: MECLIZINE HCL 25 MG TABLET (FP) ONE (01:11)
[2021-07-02 02:08] LABS: BASO % 0.6 % (0-2.0); EOS % 1.2 % (0-4.5); HEMATOCRIT 43.4 % (32.4-45.2); HEMOGLOBIN 14.8 GM/dL (10.7-15.3); LYMPH % 31.6 % (8-40); MCH 29.4 pg (25.7-33.7); MCHC 34.1 g/dl (32.0-36.0); MEAN CELL VOLUME 86.3 fl (80-96); MEAN PLT VOLUME 8.6 fl (7.5-11.1); MONO % 5.3 % (3.8-10.2); NEUT % 61.3 % (42.8-82.8); PLATELET COUNT 259 10^3/uL (134-434); RBC 5.03 M/mm3 (3.60-5.2); RDW 13.6 % (11.6-15.6); WHITE BLOOD COUNT 9.8 K/mm3 (4.0-10.0)
[2021-07-02 02:23] LABS: CALCIUM 9.1 mg/dL (8.5-10.1)
[2021-07-02 02:24] LABS: ALBUMIN 3.9 g/dl (3.4-5.0); BLOOD UREA NITROGEN 14.5 mg/dL (7-18)
[2021-07-02 02:27] LABS: CREATININE 0.6 mg/dL (0.55-1.3)
[2021-07-02 02:28] LABS: BILIRUBIN,TOTAL 0.3 mg/dL (0.2-1)
[2021-07-02 02:29] LABS: TOT PROT 7.5 g/dl (6.4-8.2)
[2021-07-02 03:44] VITALS: BP 99/60; PULSE 83; TEMP 98.7
== END 2021-07-02 03:45 | disposition home or self-care (01) ==
LOC: JER 23:39
DX: R42 Dizziness and giddiness (principal)
CPT/HCPCS: 36415; 80053; 84703; 85025; 99283-25

== ENCOUNTER → 2022-03-23 | Day surgery (SDC) | payer OTHER | END | disposition home or self-care (01) | LOC: JRADUS-SUR 11:11 | PROVIDERS: ATTEND Midwife | PROC: 0H9T3ZX Drainage of Right Breast, Percutaneous Approach, Diagnostic (ICD-10-PCS; principal; 2022-03-23) | DX: D24.1 Benign neoplasm of right breast (principal) | CPT/HCPCS: 19083; 19084; 87899; 88305-TC; 88342-TC; A4648 ==

== ENCOUNTER 2022-06-16 20:53 | Emergency (ER) | payer OTHER ==
[2022-06-16 21:00] VITALS: BP 135/85; PULSE 89; RESP 18; TEMP 97.4; BMI 35.1
[2022-06-16] MEDS ORDERED: ACETAMINOPHEN 1000 MG/100 ML BAG IVPB ONE (22:06)
[2022-06-16] MEDS ORDERED: LACTATED RINGERS SOLUTION 1000 ML INFUS.BAG IV ONE (22:06)
[2022-06-16] MEDS ORDERED: ACETAMINOPHEN INJECTION 100 ML IVPB ONE (22:17)
[2022-06-16 22:41] LABS: BASO % 0.9 % (0-2.0); EOS % 0.8 % (0-4.5); HEMATOCRIT 44.1 % (32.4-45.2); HEMOGLOBIN 14.7 GM/dL (10.7-15.3); LYMPH % 21.7 % (8-40); MCH 28.5 pg (25.7-33.7); MCHC 33.4 g/dl (32.0-36.0); MEAN CELL VOLUME 85.2 fl (80-96); MEAN PLT VOLUME 8.7 fl (7.5-11.1); MONO % 5.6 % (3.8-10.2); PLATELET COUNT 293 10^3/uL (134-434); RBC 5.18 M/mm3 (3.60-5.2); RDW 13.6 % (11.6-15.6); WHITE BLOOD COUNT 13.4 K/mm3 (4.0-10.0)
[2022-06-16 22:42] LABS: PH,URINE 6.5 (5.0-8.0); URINE APPEARANCE CLEAR; URINE BILIRUBIN NEGATIVE (NEGATIVE); URINE COLOR YELLOW; URINE GLUCOSE (UA) NEGATIVE (NEGATIVE); URINE KETONE NEGATIVE (NEGATIVE); URINE LEUK ESTERASE NEGATIVE (NEGATIVE); URINE NITRITE NEGATIVE (NEGATIVE); URINE PROTEIN NEGATIVE (NEGATIVE)
[2022-06-16 22:45] LABS: HCG,QUALITATIVE URINE Negative
[2022-06-16 23:00] LABS: CALCIUM 9.4 mg/dL (8.5-10.1)
[2022-06-16 23:01] LABS: ALBUMIN 4.2 g/dl (3.4-5.0); BLOOD UREA NITROGEN 12.8 mg/dL (7-18)
[2022-06-16 23:04] LABS: CREATININE 0.7 mg/dL (0.55-1.3)
[2022-06-16 23:06] LABS: BILIRUBIN,TOTAL 0.3 mg/dL (0.2-1); TOT PROT 8.2 g/dl (6.4-8.2)
== END 2022-06-17 02:17 | disposition home or self-care (01) ==
LOC: JER 20:53
PROC: 3E033GC Introduction of Other Therapeutic Substance into Peripheral Vein, Percutaneous Approach (ICD-10-PCS; principal; 2022-06-16)
DX: R10.2 Pelvic and perineal pain (principal); T83.32XA Displacement of intrauterine contraceptive device, initial encounter
CPT/HCPCS: 36415; 74177-TC; 76830-TC; 80053; 81003; 84703; 85025; 87086; 99285-25; Q9967

== ENCOUNTER 2022-07-25 04:39 | Day surgery (SDC) | payer OTHER ==
[2022-07-20 10:02] VITALS: BMI 35.1
[2022-07-25] MEDS ORDERED: BUPIVACAINE HCL/PF 0.25% (2.5MG/ML) 10 ML VIAL ONE (07:23)
[2022-07-25] MEDS ORDERED: ROCURONIUM BROMIDE 50 MG/5 ML SYRINGE ONE ×2 (07:39→10:07)
[2022-07-25] MEDS ORDERED: SUCCINYLCHOLINE CHLORIDE 200 MG/10 ML SYRINGE ONE (07:39)
[2022-07-25] MEDS ORDERED: MIDAZOLAM HCL 2 MG/2 ML SINGLE DOSE VIAL ONE ×2 (07:39→10:07)
[2022-07-25] MEDS ORDERED: PROPOFOL 20 ML ONE ×2 (07:39→10:07)
[2022-07-25] MEDS ORDERED: SEVOFLURANE 250 ML BTL ONE (07:40)
[2022-07-25] MEDS ORDERED: LIDOCAINE HCL/PF 2% SDV 5ML VIAL ONE (07:42)
[2022-07-25] MEDS ORDERED: ONDANSETRON 4 MG/2 ML VIAL ONE ×2 (07:42→10:49)
[2022-07-25] MEDS ORDERED: DEXAMETHASONE SOD PHOSPHATE 4 MG/1 ML VIAL ONE ×2 (07:42→10:49)
[2022-07-25] MEDS ORDERED: ONDANSETRON 4 MG/2 ML VIAL IVPUSH PRN (07:55)
[2022-07-25] MEDS ORDERED: ACETAMINOPHEN 1000 MG/100 ML BAG IVPB PRN (07:55)
[2022-07-25] MEDS ORDERED: oxyCODONE HCL 5 MG TABLET PO PRN ×2 (07:55)
[2022-07-25] MEDS ORDERED: LACTATED RINGERS SOLUTION 1,000 ML IV SCH (08:00)
[2022-07-25] MEDS ORDERED: PROPOFOL 40 ML ONE (10:06)
[2022-07-25] MEDS ORDERED: GLYCOPYRROLATE 0.2 MG/1 ML VIAL ONE (11:04)
[2022-07-25] MEDS ORDERED: NEOSTIGMINE METHYLSULFATE 0.5 MG/ML - 10 ML MDV ONE (11:04)
[2022-07-25] MEDS ORDERED: BUPIVACAINE HCL/PF 0.5% (5MG/ML) 10 ML VIAL IJ ONE ×2 (11:09)
[2022-07-25 12:48] VITALS: RESP 18
[2022-07-25 13:38] VITALS: PULSE 78
[2022-07-25] MEDS ORDERED: oxyCODONE HCL 5 MG TABLET ONE (13:45)
[2022-07-25 14:54] VITALS: BP 120/60; TEMP 98.7
== END 2022-07-25 14:50 | disposition home or self-care (01) ==
LOC: JASU-SURG 04:39
PROVIDERS: ATTEND Obstetrics & Gynecology
PROC: 0UB74ZZ Excision of Bilateral Fallopian Tubes, Percutaneous Endoscopic Approach (ICD-10-PCS; principal; 2022-07-25 07:30)
PROC: 0DNW4ZZ Release Peritoneum, Percutaneous Endoscopic Approach (ICD-10-PCS; 2022-07-25 07:30)
DX: Z30.2 Encounter for sterilization (principal); N73.6 Female pelvic peritoneal adhesions (postinfective)
CPT/HCPCS: 81025; 88302-TC; 94760

== ENCOUNTER 2023-04-19 17:02 | Emergency (ER) | payer OTHER ==
[2023-04-19 17:21] VITALS: BP 126/66; PULSE 74; RESP 18; TEMP 98; BMI 35.3
[2023-04-19] MEDS ORDERED: DIPHTH,PERTUSS(ACELL),TET 0.5 ML DISP.SYRIN IM ONE ×2 (18:46→18:48)
== END 2023-04-19 18:59 | disposition home or self-care (01) ==
LOC: JER 17:02 → JERFT 17:02
PROC: 3E0234Z Introduction of Serum, Toxoid and Vaccine into Muscle, Percutaneous Approach (ICD-10-PCS; principal; 2023-04-19)
DX: S50.811A Abrasion of right forearm, initial encounter (principal); S50.812A Abrasion of left forearm, initial encounter; S61.233A Puncture wound without foreign body of left middle finger without damage to nail, initial encounter; W55.01XA Bitten by cat, initial encounter; W55.03XA Scratched by cat, initial encounter
CPT/HCPCS: 90471; 90715; 99282-25

== ENCOUNTER → 2023-05-31 | Day surgery (SDC) | payer OTHER | END | disposition home or self-care (01) | LOC: JRADUS-SUR 08:26 | PROVIDERS: ATTEND Midwife | PROC: 0H9U3ZX Drainage of Left Breast, Percutaneous Approach, Diagnostic (ICD-10-PCS; principal; 2023-05-31) | DX: D24.2 Benign neoplasm of left breast (principal) | CPT/HCPCS: 19083; 87899; A4648 ==

== ENCOUNTER 2023-10-01 11:40 | Emergency (ER) | payer OTHER ==
[2023-10-01 11:45] VITALS: RESP 18; TEMP 97.1; BMI 35.1
[2023-10-01] MEDS ORDERED: ALBUTEROL SO4 2.5/IPRATROPIUM 0.5 INH SOL 3 ML VIAL.NEB. NEB ONE (12:47)
[2023-10-01] MEDS: ALBUTEROL SO4 2.5/IPRATROPIUM 0.5 INH SOL 3 ML VIAL.NEB. NEB ONE (12:48)
[2023-10-01 13:25] VITALS: BP 116/67; PULSE 88
== END 2023-10-01 13:32 | disposition home or self-care (01) ==
LOC: JER 11:40 → JERFT 11:40
PROC: 3E0F7GC Introduction of Other Therapeutic Substance into Respiratory Tract, Via Natural or Artificial Opening (ICD-10-PCS; principal; 2023-10-01)
DX: R05.9 Cough, unspecified (principal); R09.81 Nasal congestion; R50.9 Fever, unspecified; R11.10 Vomiting, unspecified; J40 Bronchitis, not specified as acute or chronic; J45.20 Mild intermittent asthma, uncomplicated; Z20.822 Contact with and (suspected) exposure to COVID-19
CPT/HCPCS: 0241U-QW; 71046-TC-FY; 99284-25

== ENCOUNTER 2025-01-10 16:35 | Emergency (ER) | payer OTHER ==
[2025-01-10 16:54] VITALS: BP 131/77; PULSE 75; RESP 18; TEMP 98.5; BMI 34.7
== END 2025-01-10 18:54 | disposition home or self-care (01) ==
LOC: JER 16:35
DX: R20.0 Anesthesia of skin (principal)
CPT/HCPCS: 93005; 93010; 99283-25